=== PATIENT | female | born 1995 | race Asian ===

== ENCOUNTER → 2024-07-25 | Outpatient (CLI) | payer OTHER ==
[2024-07-25 16:28] LABS: Bacterial Vaginosis PCR Negative (NEGATIVE); Candida Group, PCR NOT DETECTED (NOT DETECT); Candida glabrata-krusei, PCR NOT DETECTED (NOT DETECT)
== END ==
LOC: LAB 12:50 → LAB SHORT 12:50
PROVIDERS: Registered Nurse Community Health
DX: N89.8 Other specified noninflammatory disorders of vagina (principal)
CPT/HCPCS: 81515; 87086

== ENCOUNTER → 2024-08-05 | Outpatient (CLI) | payer OTHER ==
[2024-08-05 13:24] LABS: Hematocrit 36.4 % (33.0-51.0); Hemoglobin 12.1 g/dL (11.5-16.0)
== END | disposition home or self-care (01) ==
LOC: LAB 09:57 → LAB SHORT 09:57
PROVIDERS: Registered Nurse Community Health
DX: Z34.93 Encounter for supervision of normal pregnancy, unspecified, third trimester (principal)
CPT/HCPCS: 82950; 85014; 85018

== ENCOUNTER → 2024-10-01 | Outpatient (CLI) | payer OTHER | LOC: LAB SHORT 14:26 → LAB 14:26 | DX: Z34.83 Encounter for supervision of other normal pregnancy, third trimester (principal) | CPT/HCPCS: 87081; 87150 ==

== ENCOUNTER 2024-10-22 14:49 | Inpatient (IN) | payer OTHER ==
[2024-10-22] VITALS (11 sets, daily range): BP systolic 98–133; BP diastolic 51–77
[~2024-10-22] VITALS: Ht 162.6 cm; Wt 72.3 kg
[2024-10-22] MEDS ORDERED: Misoprostol 200 MCG Tab BC PRN (17:25)
[2024-10-22] MEDS ORDERED: OXYTOCIN/RINGER'S LACTATE 500 ML IV PRN (17:25)
[2024-10-22] MEDS ORDERED: Methylergonovine Maleate 0.2MG / ML 1ML Amp IM PRN ×2 (17:25→20:05)
[2024-10-22] MEDS ORDERED: Ondansetron HCl 2 MG / ML 2ML Vial IV PRN (17:25)
[2024-10-22] MEDS ORDERED: ePHEDrine Sulfate 50 MG/ML 1ML Injection XX PRN (17:25)
[2024-10-22] MEDS ORDERED: Misoprostol 200 MCG Tab PR PRN ×2 (17:25→20:10)
[2024-10-22] MEDS ORDERED: Lactated Ringer's 1,000 ML IV PRN (17:25)
[2024-10-22] MEDS ORDERED: Acetaminophen 500 MG Tab PO PRN (17:25)
[2024-10-22] MEDS ORDERED: Carboprost Tromethamine 250 MCG/ML 1ML Amp IM PRN (17:25)
[2024-10-22] MEDS ORDERED: Lactated Ringer's 1,000 ML IV SCH ×3 (17:25→20:25)
[2024-10-22] MEDS ORDERED: Tranexamic Acid 100 ML IV SCH (17:25)
[2024-10-22] MEDS ORDERED: Oxytocin 10 Unit / ML Vial IM PRN (17:25)
[2024-10-22] MEDS ORDERED: FentaNYL 2mcg/ml-Bup 0.1% Epd 250 ML EPI PRN (17:25)
[2024-10-22] MEDS ORDERED: Calcium Carbonate 500 MG Tab Chew PO SCH (17:30)
[2024-10-22] MEDS ORDERED: ONE-A-DAY PREN1 EAC1 (17:54)
[2024-10-22 18:07] LABS: BASOPHILS ABSOLUTE AUTO 0.04 K/mm3 (0.00-0.23); BASOPHILS PERCENT AUTO 0 % (0-2); EOSINOPHILS ABSOLUTE AUTO 0.05 K/mm3 (0.00-0.68); EOSINOPHILS PERCENT AUTO 0 % (0-6); Hemoglobin 12.5 g/dL (11.5-16.0); IMMATURE GRAN ABSOLUTE AUTO 0.05 K/mm3 (0.00-0.10); IMMATURE GRAN PERCENT AUTO 0 % (0-1); LYMPHOCYTES ABSOLUTE AUTO 2.08 K/mm3 (0.84-5.20); LYMPHOCYTES PERCENT AUTO 18 % (21-46); MONOCYTES ABSOLUTE AUTO 0.93 K/mm3 (0.16-1.47); MONOCYTES PERCENT AUTO 8 % (4-13); Mean Corpuscular HGB Conc 33.8 g/dL (31.5-36.5); Mean Corpuscular Volume 86 fL (80-100); Mean Platelet Volume 10.9 fL (9.1-12.4); NEUTROPHILS ABSOLUTE AUTO 8.63 K/mm3 (1.96-9.15); NEUTROPHILS PERCENT AUTO 73 % (41-73); Platelet Count 156 K/mm3 (150-400); RDW Coefficient Variation 13.2 % (11.7-14.2); RDW Standard Deviation 41.1 fL (35.1-46.3); Red Blood Cell Count 4.31 M/mm3 (3.80-5.20); White Blood Cell Count 11.78 K/mm3 (4.00-11.30)
[2024-10-22] MEDS ORDERED: Docusate Sodium 100 MG Cap PO PRN (20:00)
[2024-10-22] MEDS ORDERED: Witch Hazel/Glycerin PADS TOP PRN (20:00)
[2024-10-22] MEDS ORDERED: Ibuprofen 400 MG Tab PO PRN (20:00)
[2024-10-22] MEDS ORDERED: Rho(D) Immune Globulin 300 MCG / SYR IM ONE (20:05)
[2024-10-22] MEDS ORDERED: OXYTOCIN/RINGER'S LACTATE 500 ML IV SCH (20:05)
[2024-10-22] MEDS ORDERED: Ketorolac Tromethamine 30mg Vial IV PRN (20:05)
[2024-10-22] MEDS ORDERED: Benzocaine Topical Anesthetic Spray 60GM TOP PRN (20:05)
[2024-10-22] MEDS ORDERED: Diphth,Pertuss(Acell),Tet Vac 0.5 ML VIAL IM ONE (20:05)
[2024-10-22] MEDS ORDERED: Measles/Mumps/Rubella Vaccine 0.5 ML Vial SC ONE (20:05)
[2024-10-22] MEDS ORDERED: OxyCODONE 5 mg/Acetamin 325 mg TABLET PO PRN (20:10)
[2024-10-22] MEDS ORDERED: Oxytocin 10 Unit / ML Vial IM ONE (20:10)
[2024-10-22] MEDS ORDERED: Lanolin Cream TOP PRN (20:10)
[2024-10-22] MEDS ORDERED: Acetaminophen/Codeine 300-30 mg PO PRN (20:10)
[2024-10-22] MEDS ORDERED: Acetaminophen 325 MG TABLET PO PRN (20:10)
[2024-10-23 04:06] VITALS: BP 118/64
[2024-10-23 06:08] LABS: BASOPHILS ABSOLUTE AUTO 0.04 K/mm3 (0.00-0.23); BASOPHILS PERCENT AUTO 0 % (0-2); EOSINOPHILS ABSOLUTE AUTO 0.04 K/mm3 (0.00-0.68); EOSINOPHILS PERCENT AUTO 0 % (0-6); Hematocrit 33.5 % (33.0-51.0); Hemoglobin 11.3 g/dL (11.5-16.0); IMMATURE GRAN ABSOLUTE AUTO 0.05 K/mm3 (0.00-0.10); IMMATURE GRAN PERCENT AUTO 0 % (0-1); LYMPHOCYTES ABSOLUTE AUTO 1.97 K/mm3 (0.84-5.20); LYMPHOCYTES PERCENT AUTO 15 % (21-46); MONOCYTES ABSOLUTE AUTO 1.08 K/mm3 (0.16-1.47); MONOCYTES PERCENT AUTO 8 % (4-13); Mean Corpuscular HGB 28.4 pg (26.0-34.0); Mean Corpuscular HGB Conc 33.7 g/dL (31.5-36.5); Mean Corpuscular Volume 84 fL (80-100); Mean Platelet Volume 10.9 fL (9.1-12.4); NEUTROPHILS ABSOLUTE AUTO 10.17 K/mm3 (1.96-9.15); NEUTROPHILS PERCENT AUTO 76 % (41-73); Platelet Count 144 K/mm3 (150-400); RDW Coefficient Variation 13.2 % (11.7-14.2); RDW Standard Deviation 40.3 fL (35.1-46.3); Red Blood Cell Count 3.98 M/mm3 (3.80-5.20); White Blood Cell Count 13.35 K/mm3 (4.00-11.30)
[2024-10-23 08:47] VITALS: BP 112/78
[2024-10-23] MEDS ORDERED: Prenatal Vit/FE Fumarate/FA 1 Tab PO SCH (09:00)
[2024-10-23] MEDS ORDERED: Rho(D) Immune Globulin 300 MCG / SYR IV ONE (12:00)
[2024-10-23 12:12] VITALS: BP 122/63
[2024-10-23 17:08] VITALS: BP 115/73
[2024-10-23 19:45] VITALS: BP 112/62
--- NOTE | 2024-10-23 21:21 | NUR ---
RN WENT OVER DISCHARGE INSTRUCTIONS, GAVE ALL NECESSARY PAPERWORK, AND MATCHED BANDS. RN GUIDED MOB IN WHEELCHAR WHILE SHE WAS HOLDING OUT TO VEHICLE. RN WATCHED FOB PLACED IN CARSEAT. MOB & FOB HAD NO QUESTIONS OR CONCERNS BEFORE LEAVING.
== END 2024-10-23 21:20 | disposition home or self-care (01) | DRG 807 ==
LOC: BC 14:49 → OBS 14:49 → BC 17:11
PROVIDERS: ADMIT Registered Nurse Community Health
PROC: 10E0XZZ Delivery of Products of Conception, External Approach (ICD-10-PCS; 2024-10-22)
PROC: 10907ZC Drainage of Amniotic Fluid, Therapeutic from Products of Conception, Via Natural or Artificial Opening (ICD-10-PCS; 2024-10-22)
PROC: 4A1HXCZ Monitoring of Products of Conception, Cardiac Rate, External Approach (ICD-10-PCS; 2024-10-22)
PROC: 3E0334Z Introduction of Serum, Toxoid and Vaccine into Peripheral Vein, Percutaneous Approach (ICD-10-PCS; principal; 2024-10-23)
DX: O26.893 Other specified pregnancy related conditions, third trimester (principal); Z37.0 Single live birth; Z23 Encounter for immunization; Z67.31 Type AB blood, Rh negative; Z3A.40 40 weeks gestation of pregnancy
CPT/HCPCS: 36415; 59025; 81003; 85025; 85460; 86850; 86870; 86900; 86901; 99214; A9270; J1885; J2590; J2791

== ENCOUNTER → 2024-12-06 | Outpatient (CLI) | payer OTHER ==
[~2024-12-06] MED LIST: ONE-A-DAY PREN1 EAC1
[2024-12-06 19:35] LABS: Bacterial Vaginosis PCR Negative (NEGATIVE); Candida Group, PCR NOT DETECTED (NOT DETECT); Candida glabrata-krusei, PCR NOT DETECTED (NOT DETECT)
== END | disposition home or self-care (01) ==
LOC: LAB SHORT 16:17 → LAB 16:17
PROVIDERS: Registered Nurse Community Health
DX: N89.8 Other specified noninflammatory disorders of vagina (principal)
CPT/HCPCS: 81515; 87070; 87205